=== PATIENT | female | born 2000 | race Caucasian/White ===

== ENCOUNTER 2022-07-10 09:27 | Day surgery (SDC) | payer MEDICAID, SELFPAY ==
[2022-07-10] MEDS: BACITRACIN/POLYMYXIN B 15 GM Tube 1 APPLIC (09:53)
[2022-07-10 09:56] VITALS: BP 131/71; PULSE 87; RESP 16; TEMP 36.1; O2SAT 99; BMI 38.9
[2022-07-10] MEDS: Lactated Ringers 1,000 ML 15 ML IV (10:06)
--- NOTE | 2022-07-10 10:17 | DS.PCM_ITS ---
Providers Primary Care Physician: Anum Taylor NP-C Reason For Visit: LEFT TYMPANOPLASTY,HARVEST OF CARTILAGE GRAFT Medications at Discharge Home Medications NK 07/03/22 Weight / BMI Weight Weight: 116.3 kg Body Mass Index (BMI) 38.9 D/C Instructions Discharge Diet: No restrictions Discharge Activity: Return to Normal Activity Additional Activity Instructions: Keep the inside of the ear dry Additional Dressing/Incision Instructions: Remove and discard dressing tomorrow morning (07/11/22). Change cotton ball as needed. Please Follow Up With: Aki Dunbar MD When: 3 weeks Meaningful Use Info Meaningful Use Diagnoses (Choose all that apply): None applicable Discharge Plan Admission Attending Provider: Aki Dunbar Primary Care Provider: Anum Taylor NP Discharge Orders/Prescriptions Prescriptions: No Action NK Referrals / Follow Up: Anum Taylor NP, [employer] [Primary Care Provider] - Disposition Disposition (needs filled in before D/C Order can be placed): Home, Self Care
[2022-07-10 10:19] LABS: Internal QC Validated? YES +Cl - CLEAR BKGD; Pregnancy, Urine Negative Negative
--- NOTE | 2022-07-10 10:20 | PCM.OPRPT ---
Report of Operation Date of Procedure: 07/10/22 Pre-Operative Diagnosis: left tympanic membrane perforation Post-Operative Diagnosis: same Surgery/Procedure Performed:: Left tympanoplasty harvest tragal cartilage Surgeon: Aki Dunbar Type of Anesthesia: General Anesthesiologist: Adriano Lima Estimated Blood Loss (mL): minimal Description of Procedure: Patient was taken to the operating room on 07/10/2022. She was placed in supine position on the operating table. She was given sufficient general endotracheal anesthesia. The table was turned 90 degrees in a clockwise fashion. The left ear was prepped and draped sterilely. 1% lidocaine with epinephrine was injected into the tragus and meatus. Next a speculum was inserted into the external auditory canal and the external auditory canal skin was injected with 1% lidocaine with epinephrine. Next I made an incision at the edge of the tragal cartilage with a 15 blade. A plane was established sharply on both the medial and lateral aspects of the tragal cartilage. The tragal cartilage was then harvested sharply with scissors. I then irrigated the tragal harvest site with saline. Hemostasis was achieved with bipolar cautery. The incision was then closed with interrupted 6-0 fast-absorbing gut. I placed a quilting suture to close the space as well. Next a speculum was horowitz was used. I rimmed the perforation with a [place] pick. The rim was removed with a cup forceps. I then made an incision from 1:00 to 7:00 inferiorly in the external auditory canal skin with a round [place] blade. The tympanomeatal flap was elevated sharply. The chorda tympani nerve was identified and preserved. I then placed Cipro impregnated Gelfoam into the middle ear space. The tragal cartilage was cut to the appropriate size and placed in underlay fashion beneath the perforation. The tympanomeatal flap was redraped. I then made sure that the cartilage was tucked circumferentially underneath the perforation. the external auditory canal was filled with antibiotic ointment. A Rj dressing was then applied. The patient then awoken about the recovery room in stable condition. Blood loss minimal,replacement none,sponge needle and instrument counts correct were correct at the end of the procedure.
[2022-07-10] MEDS: Lidocaine 1% /Epi 1:100 (20ml) 20 ML Vial (10:50)
[2022-07-10] MEDS: Epinephrine (1 mg/ml) 1 MG/ML VIAL (11:50)
[2022-07-10] MEDS: Ciprofloxacin 0.3% 2.5ml Bottle 1 DRP (11:50)
[2022-07-10 12:57] VITALS: BP 129/74; BP 131/71; PULSE 69; RESP 16; TEMP 36.8; O2SAT 95
[2022-07-10 13:00] VITALS: BP 128/66; BP 131/71; PULSE 73; RESP 16; O2SAT 95
[2022-07-10 13:15] VITALS: BP 131/65; BP 131/71; PULSE 67; RESP 16; O2SAT 93
[2022-07-10 13:30] VITALS: BP 124/78; BP 131/71; PULSE 67; RESP 16; TEMP 36.4; O2SAT 97
[2022-07-10] MEDS: Acetaminophen 325 MG Tablet 650 MG PO (13:46)
[2022-07-10 14:29] VITALS: BP 123/61; BP 131/71; PULSE 67; RESP 16; TEMP 36; O2SAT 100
== END 2022-07-10 14:44 | disposition home or self-care (01) ==
LOC: SDC 09:33 → AC 09:36
PROVIDERS: Anesthesiology; PCP Nurse Practitioner Family; Referring Provider Otolaryngology; Visit Provider Otolaryngology
PROC: (CPT 69631; principal; 2022-07-10 10:25)
DX: H72.02 Central perforation of tympanic membrane, left ear (principal); F12.90 Cannabis use, unspecified, uncomplicated
CPT/HCPCS: 69631; 81025; J7120; J2405